=== PATIENT | female | born 1945 | race Native Hawaiian/Other Pacific Islander ===

== ENCOUNTER 2017-03-11 10:40 | Day surgery (SDC) | payer MEDICARE, OTHER ==
--- NOTE | 2017-03-11 13:03 | CP.SDSHP ---
Same Day Surgery H & P - History Proposed Procedure: US guided FNA of left thyroid nodule Pre-Op Diagnosis: left thyroid nodule - Allergies Allergies: Allergies No Known Allergies Allergy (Verified 03/09/16 18:56) - Physical Exam Vital Signs: Vital Signs 03/11/17 11:11 Temperature 97.6 F Pulse Rate 81 Respiratory 20 Rate Blood Pressure 135/77 O2 Sat by Pulse 98 Oximetry Mental Status: Alert & Oriented x3 - Impression Impression: Pt with a 1.2 cm left thyroid nodule. Plan US guided FNA. Pt. Evaluated Today:Candidate for Anesthesia & Procedure: No Short Stay Discharge - Short Stay Discharge Admitting Diagnosis/Reason for Visit: NONTOXIC GOITER, UNSPECIFIED
--- NOTE | 2017-03-11 13:04 | PCM.SURG1 ---
Surgeon's Initial Post Op Note - Surgeon's Notes Surgeon: Moe Conley MD Lead Cashier: NONE Type of Anesthesia: Local Pre-Operative Diagnosis: left thyroid nodule Operative Findings: 1.2 cm complex left thyroid nodule Post-Operative Diagnosis: left thyroid nodule Operation Performed: US guided FNA of left thyroid nodule Specimen/Specimens Removed: 25 g FNA x 4 Estimated Blood Loss: EBL {In ML}: 0 Blood Products Given: N/A Drains Used: No Drains Post-Op Condition: Good Date of Surgery/Procedure: 03/11/17 Time of Surgery/Procedure: 13:00
[2017-03-11 13:05] VITALS: BMI 24.7
[2017-03-11 13:32] VITALS: BP 120/60; PULSE 66; RESP 18; TEMP 98; O2SAT 100
--- NOTE | 2017-03-14 10:59 | US ---
PROCEDURE: Date of Procedure: 03/11/2017 PROCEDURE: 1. Ultrasound guided FNA of left thyroid nodule, CPT 68976 2. Ultrasound guidance for FNA, 79931 Medications: 3cc 1% Lidocaine HISTORY: Enlarged left thyroid nodule. TECHNIQUE: Following informed consent and procedure time-out, a limited ultrasound patient's neck confirmed the presence of a 1.2 cm complex left thyroid nodule which is predominantly solid. After the patient's neck was prepped and draped in the usual sterile fashion, the skin was anesthetized with 1% lidocaine. Ultrasound-guided fine needle aspiration was then performed of the dominant left thyroid nodule. A total of 4 passes were made into the nodule with 25 gauge needle under ultrasound guidance. The FNA specimen was sent for routine pathology. Post biopsy ultrasound showed no hematoma. IMPRESSION: Ultrasound-guided FNA of the dominant left thyroid nodule.
== END 2017-03-11 13:33 | disposition home or self-care (01) ==
LOC: C.SPRAD 10:40
PROVIDERS: ATTEND Radiology Vascular & Interventional Radiology
DX: E04.1 Nontoxic single thyroid nodule (principal)

== ENCOUNTER 2017-07-18 10:19 | Emergency (ER) | payer MEDICARE, OTHER ==
[2017-07-18 10:20] VITALS: BMI 24.7
[2017-07-18 10:25] VITALS: RESP 16
--- NOTE | 2017-07-18 12:05 | C.PDOC ---
History Of Present Illness 72 y/o female with PMH of arthritis presents to ED with complaints of right sided upper and lower extremity pain for 2 weeks. Patient states she is compliant with Tramadol medication x3 time daily given by PMD 2 weeks ago with no relief. Patient denies trauma, numbness, fever, chills or any other complaints at this time. Time Seen by Provider: 07/18/17 11:23 Chief Complaint (Nursing): Upper Extremity Problem/Injury History Per: Patient Onset/Duration Of Symptoms: Days, Waxing/Waning Past Medical History Reviewed: Historical Data, Nursing Documentation, Vital Signs Vital Signs: Last Vital Signs Temp 98.1 F 07/18/17 13:12 Pulse 78 07/18/17 13:12 Resp 16 07/18/17 13:12 BP 150/88 07/18/17 13:12 Pulse Ox 97 07/18/17 13:12 - Medical History PMH: Hypercholesterolemia, Hypothyroidism Surgical History: No Surg Hx Family History: States: No Known Family Hx - Social History Hx Alcohol Use: No Hx Substance Use: No - Immunization History Hx Tetanus Toxoid Vaccination: Yes Hx Influenza Vaccination: No Hx Pneumococcal Vaccination: No Review Of Systems Constitutional: Negative for: Fever, Chills Gastrointestinal: Negative for: Nausea, Vomiting Musculoskeletal: Positive for: Neck Pain, Shoulder Pain, Leg Pain Skin: Negative for: Rash Neurological: Negative for: Weakness, Numbness, Headache Physical Exam - Physical Exam Appears: Non-toxic, No Acute Distress Skin: Warm, Dry, No Rash Head: Atraumatic, Normacephalic Eye(s): bilateral: Normal Inspection Oral Mucosa: Moist Neck: Normal ROM, Supple Chest: Symmetrical Cardiovascular: Rhythm Regular Respiratory: Normal Breath Sounds, No Rales, No Rhonchi, No Wheezing Gastrointestinal/Abdominal: Soft, No Tenderness, No Guarding, No Rebound Extremity: No Pedal Edema, Capillary Refill (<2 seconds), Swelling (mild inflammation to right radial wrist and right thumb PIP, bilateral knees) Neurological/Psych: Oriented x3, Normal Speech, Normal Motor, Normal Sensation Gait: Steady ED Course And Treatment O2 Sat by Pulse Oximetry: 99 (RA) Pulse Ox Interpretation: Normal Medical Decision Making Medical Decision Making: Impression: arthralgia Plan: Right Upper extremity xray Progress: Xrays show degenerative bone disease. No fractures. Patient was treated with Toradol and Percocet. Patient reevaluated and reports pain is improving. Patient has no fx on xray and no signs of cellulitis or septic arthritis. Patient stable for discharge. Disposition Counseled Patient/Family Regarding: Diagnosis, Need For Followup, Rx Given - Disposition Referrals: Kennedy Crowe MD [Staff Provider] - Disposition: HOME/ ROUTINE Disposition Time: 13:10 Condition: STABLE Additional Instructions: Follow up with your primary medical doctor or clinic in 2-5 days for further evaluation. Take pain medications as needed. Return to the emergency department at any time if symptoms persist or worsen. Prescriptions: oxyCODONE/Acetaminophen [Percocet 5/325 mg Tab] 1 tab PO QID PRN #14 tab PRN Reason: Pain Instructions: Arthralgia (ED) Forms: [employer] (Nepali) - POA Present On Arrival: None - Clinical Impression Clinical Impression: Arthralgia - PA / ALLEY WORKER / Resident Statement MD/DO has reviewed & agrees with the documentation as recorded. - Scribe Statement The provider has reviewed the documentation as recorded by the [employer] All medical record entries made by the Fay were at my direction and personally dictated by me. I have reviewed the chart and agree that the record accurately reflects my personal performance of the history, physical exam, medical decision making, and the department course for this patient. I have also personally directed, reviewed, and agree with the discharge instructions and disposition.
[2017-07-18] MEDS ORDERED: Oxycodone/Acetaminophen 5/325 mg Tab PO STA (12:10)
[2017-07-18] MEDS ORDERED: Oxycodone/Acetaminophen 5/325 mg Tab ONE (12:40)
[2017-07-18 13:13] VITALS: BP 150/88; PULSE 78; TEMP 98.1
--- NOTE | 2017-07-18 13:25 | RAD ---
PROCEDURE: Right Hand Radiographs. HISTORY: pain COMPARISON: None. FINDINGS: BONES: Normal. No fracture. JOINTS: Normal. No osteoarthritic changes. SOFT TISSUES: Normal. OTHER FINDINGS: None. IMPRESSION: Normal right hand radiographs.
--- NOTE | 2017-07-18 13:44 | RAD ---
PROCEDURE: Radiographs of the Right Shoulder HISTORY: pain COMPARISON: No prior. FINDINGS: BONES: Normal. No fracture. JOINTS: Normal. Glenohumeral and acromioclavicular joints preserved. No osteoarthritis. SOFT TISSUES: Normal. OTHER FINDINGS: None. IMPRESSION: Normal radiographs of the right shoulder.
[2017-07-19 09:22] VITALS: O2SAT 99
== END 2017-07-18 13:12 | disposition home or self-care (01) ==
LOC: C.ER 10:19
DX: M25.531 Pain in right wrist (principal)
CPT/HCPCS: 73030; 73130; 96372; 99284; J1885

== ENCOUNTER → 2018-07-12 | Day surgery (SDC) | payer MEDICARE, OTHER ==
[2018-07-05 08:27] VITALS: BMI 27.3
[~2018-07-12] MED LIST: Carbachol 0.01% IO ONE; Chondroitin/Hyaluronate Opth Syringe KIT (0.55 ml-0.5 ml) IO ONE; Ciprofloxacin 0.3% OPTH SOLN OD SCH; Hyaluronidase Human, Recombi 150 U/ML VIAL ONE; Ketorolac Tromethamine 0.5% Opth Soln (3 ml) OD SCH; Lactated Ringer's 500 ML IV ONE; Lidocaine 2% MPF (5 ml) Inj ONE; Midazolam 2 MG/2 ML VIAL ONE; Phenylephrine 2.5% Opht Soln OD SCH; Povidone Iodine Ophthalmic 5% Soln ONE; Tobramycin/Dexamethasone OPHT OINT ONE; Tropicamide 0.5% Opht Sol OD SCH; acetaZOLAMIDE 500 mg SR Cap PO ONE
[2018-07-12 10:42] VITALS: RESP 18
[2018-07-12 12:12] VITALS: BP 120/68; PULSE 81; TEMP 97.1; O2SAT 98
--- NOTE | 2018-07-12 20:47 | OP ---
PROCEDURE DATE: 07/12/2018 PREOPERATIVE DIAGNOSIS: Cataract, right eye. POSTOPERATIVE DIAGNOSIS: Cataract, right eye. OPERATIVE PROCEDURE: Phacoemulsification, right eye, insertion of posterior chamber lens implant. SURGEON: Hussein Benton MD CO-SURGEON: Edgar Montero MD TYPE OF ANESTHESIA: Local IV sedation. PROCEDURE: The patient was brought into the operating room, placed in supine position, prepped and draped in the usual fashion for ophthalmic surgery. Lid speculum was inserted, lids and exposing globe. A side-port incision was made superiorly and inferiorly with a disposable sharp blade. Anterior chamber was filled with Viscoat. A near clear corneal incision was made temporally with a 2.75-mm keratome. Capsulorrhexis was then performed with Utrata forceps. Hydrodissection carried out with balanced salt solution. Nucleus was phacoemulsified. Remaining cortical fragments were removed with a split irrigation and aspiration system. The capsular sac was filled with Provisc. A posterior chamber lens was then injected into the capsular sac and rotated into horizontal position. Provisc was aspirated out of the anterior chamber. The pupil was constricted with Miochol. The wound was found to be watertight. Topical Betadine, Timoptic, and TobraDex ointment and pressure patch were applied. The patient tolerated the procedure well. Hussein Benton MD
== END | disposition home or self-care (01) ==
LOC: C.SDS 08:02
PROVIDERS: ATTEND Ophthalmology
DX: H25.11 Age-related nuclear cataract, right eye (principal)
CPT/HCPCS: 66984; 82948; J2250; J3010; J3470; J7120